=== PATIENT | female | born 1965 | race Caucasian/White ===

== ENCOUNTER 2019-01-14 07:52 | Outpatient (CLI) | payer OTHER | END 2019-01-14 08:39 | disposition home or self-care (01) | LOC: LAB 07:52 | DX: K80.00 Calculus of gallbladder with acute cholecystitis without obstruction (principal) ==

== ENCOUNTER 2019-01-14 08:03 | Outpatient (CLI) | payer OTHER | END 2019-01-14 09:07 | disposition home or self-care (01) | LOC: RAD 08:03 | DX: K80.20 Calculus of gallbladder without cholecystitis without obstruction (principal) ==

== ENCOUNTER 2019-10-10 08:52 | Outpatient (CLI) | payer OTHER | END 2019-10-10 09:06 | disposition home or self-care (01) | LOC: SONOGRAMA 08:52 → MAMO-SONO 09:15 | PROVIDERS: ATTEND Obstetrics & Gynecology | DX: N95.0 Postmenopausal bleeding (principal) ==

== ENCOUNTER → 2019-10-10 16:30 | Outpatient (CLI) | payer OTHER | END | disposition home or self-care (01) | LOC: LAB 10:36 | PROVIDERS: ATTEND Obstetrics & Gynecology | DX: N95.1 Menopausal and female climacteric states (principal); E55.9 Vitamin D deficiency, unspecified; E78.2 Mixed hyperlipidemia; E11.9 Type 2 diabetes mellitus without complications ==

== ENCOUNTER → 2019-12-19 07:48 | Outpatient (CLI) | payer OTHER | END | disposition home or self-care (01) | LOC: LAB 12-18 17:41 | PROVIDERS: ATTEND Anesthesiology | DX: N39.0 Urinary tract infection, site not specified (principal) ==

== ENCOUNTER 2020-12-28 16:10 | Outpatient (CLI) | payer OTHER | END 2020-12-28 16:20 | disposition home or self-care (01) | LOC: RAD 16:10 | PROVIDERS: ATTEND Anesthesiology | DX: M79.644 Pain in right finger(s) (principal) ==

== ENCOUNTER 2021-05-12 08:00 | Outpatient (CLI) | payer OTHER | END 2021-05-12 08:30 | disposition home or self-care (01) | LOC: PPH VACUNA 08:00 | PROVIDERS: ATTEND Emergency Medicine Pediatric Emergency Medicine | DX: Z23 Encounter for immunization (principal) ==

== ENCOUNTER 2021-05-12 12:04 | Outpatient (CLI) | payer OTHER | END 2021-05-12 14:01 | disposition home or self-care (01) | LOC: LAB 12:04 | PROVIDERS: ATTEND Obstetrics & Gynecology | DX: N95.1 Menopausal and female climacteric states (principal); E55.9 Vitamin D deficiency, unspecified; E78.2 Mixed hyperlipidemia; E11.9 Type 2 diabetes mellitus without complications ==

== ENCOUNTER → 2021-05-17 12:08 | Outpatient (CLI) | payer OTHER | END | disposition home or self-care (01) | LOC: NUCLEAR 11:45 | PROVIDERS: ATTEND Obstetrics & Gynecology | DX: M81.0 Age-related osteoporosis without current pathological fracture (principal) ==

== ENCOUNTER 2021-11-09 08:43 | Outpatient (CLI) | payer OTHER | END 2021-11-09 08:53 | disposition home or self-care (01) | LOC: PPH VACUNA 08:43 | PROVIDERS: ATTEND Emergency Medicine Pediatric Emergency Medicine | DX: Z23 Encounter for immunization (principal) ==